=== PATIENT | female | born 1960 | race Caucasian/White ===

== ENCOUNTER 2016-03-29 16:09 | Emergency (ER) | payer BC, OTHER ==
[2016-03-29] MEDS ORDERED: KETOROLAC TROMETHAMINE 30 MG/ML 1 ML VIAL ONE (17:53)
[2016-03-29] MEDS ORDERED: METOCLOPRAMIDE HCL 5 MG/ML 2ML VIAL ONE (17:53)
[2016-03-29] MEDS ORDERED: DIPHENHYDRAMINE HCL 50 MG/1 ML VIAL ONE (17:53)
[2016-03-29] MEDS ORDERED: SODIUM CHLORIDE 0.9% 1,000 ML ONE (17:53)
== END 2016-03-29 19:33 | disposition home or self-care (01) ==
LOC: ED 16:09
DX: G43.909 Migraine, unspecified, not intractable, without status migrainosus (principal); R11.2 Nausea with vomiting, unspecified
CPT/HCPCS: 96375 ×2; 99283 ×2; 96374; 96361; 82962; J1200; J2765; J1885; J7030